=== PATIENT | female | born 1990 | race Caucasian/White ===

== ENCOUNTER 2020-05-05 09:49 | Outpatient (CLI) | payer MEDICAID | END 2020-05-05 23:59 | disposition home or self-care (01) | LOC: RAD 09:49 | PROVIDERS: ATTEND Family Medicine | DX: R44.3 Hallucinations, unspecified (principal) | CPT/HCPCS: 95816 ==

== ENCOUNTER 2023-02-13 08:32 | Outpatient (CLI) | payer MEDICAID | END 2023-02-13 23:59 | disposition home or self-care (01) | LOC: RAD 08:32 | PROVIDERS: ATTEND Nurse Practitioner Family | DX: R40.4 Transient alteration of awareness (principal) | CPT/HCPCS: 95819 ==